=== PATIENT | female | born 1945 | race Caucasian/White ===

== ENCOUNTER → 2017-03-24 | Outpatient (CLI) | payer OTHER ==
[2016-09-29 12:01] VITALS: BP 149/65
[~2017-03-24] MED LIST: AMLO2.5T PO; CIPR500T94 PO; FLUC200T4 PO; FLUO10CA13 PO; HYDR-2666 PO; HYDR-971 PO; LISI40TA PO; PHEN-373 PO
--- NOTE | 2017-03-24 14:05 | KCIC ---
MR of the left knee HISTORY: Left knee pain. Pain for 3 months. Nogal pop. Swelling. TECHNIQUE: Routine multiplanar sequences. FINDINGS: Radial tear at the posterior root attachment of the medial meniscus. Extrusion of medial meniscus from the medial joint compartment. Diffuse intrameniscal signal through the entire medial meniscus. No evidence of lateral meniscal tear. Anterior and posterior cruciate ligaments are intact. Medial collateral ligament is intact. Iliotibial band unremarkable. Fibular collateral ligament, biceps femoris tendon and popliteus tendon are intact. Extensor mechanism is intact. Trace joint fluid. No evidence of osteochondral loose body. Severe chondromalacia at the medial joint compartment. Moderate to severe chondromalacia at the medial ridge of the patella. No bone lesion. No acute fracture. No acute soft tissue injury. Very small Dey's cyst. IMPRESSION: 1. Medial meniscal tear. 2. 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 Electronically signed by: Tj Vincent MD (03/24/2017 2:01 PM)
== END | disposition home or self-care (01) ==
LOC: KCIC MRI 11:44
PROVIDERS: ATTEND Orthopaedic Surgery
DX: M17.12 Unilateral primary osteoarthritis, left knee (principal); S83.242A Other tear of medial meniscus, current injury, left knee, initial encounter; X58.XXXA Exposure to other specified factors, initial encounter; Y93.89 Activity, other specified; Y92.89 Other specified places as the place of occurrence of the external cause; Y99.8 Other external cause status
CPT/HCPCS: 73721

== ENCOUNTER 2018-02-07 18:18 | Emergency (ER) | payer OTHER ==
[2018-02-07] MEDS: ACETAMINOPHEN 500 MG TABLET PO (19:22)
== END 2018-02-07 21:10 | disposition home or self-care (01) ==
LOC: ER 18:18
DX: S63.502A Unspecified sprain of left wrist, initial encounter (principal); S20.212A Contusion of left front wall of thorax, initial encounter; F41.9 Anxiety disorder, unspecified; F32.9 Major depressive disorder, single episode, unspecified; I10 Essential (primary) hypertension; Z87.440 Personal history of urinary (tract) infections; Z88.1 Allergy status to other antibiotic agents; Z88.8 Allergy status to other drugs, medicaments and biological substances; V89.2XXA Person injured in unspecified motor-vehicle accident, traffic, initial encounter; Y93.89 Activity, other specified; Y99.8 Other external cause status; Y92.488 Other paved roadways as the place of occurrence of the external cause
CPT/HCPCS: 71046; 73110; 93005; 99284-25

== ENCOUNTER → 2019-08-14 | Outpatient (CLI) | payer OTHER ==
[2018-02-07 21:10] VITALS: BP 163/83
[~2019-08-14] MED LIST changes: -AMLO2.5T PO; +AMLO2.5T5 PO; -HYDR-2666 PO; +HYDR-2761 PO; +HYDR-3164 PO; -HYDR-971 PO; +LISI-130 PO; -LISI40TA PO; -PHEN-373 PO; +PHEN-444 PO
--- NOTE | 2019-08-14 14:54 | KCIC ---
MRI Lumbar Spine without contrast History: Sciatica, recent onset of left posterior thigh pain, left knee pain, left lower extremity numbness Technique: Multiplanar, multi sequential noncontrast MR imaging was performed of the lumbar spine. Comparison: None Findings: Most inferior fully formed intervertebral disc space is considered L5-S1.. There is assumption of 5 lumbar type vertebral bodies. There is a rudimentary, incomplete intervertebral disc space at what is considered S1-S2. Other than small Schmorl's nodes, lumbar vertebral body stature is maintained. There is negligible anterior spondylolisthesis at L3-L4. There is mild L3-4 degenerative disc disease, mild disc desiccation L2-3 and L5-S1. Not fully evaluated, there is either a circumaortic or retroaortic left renal vein. There are either cysts of the left renal pelvis versus hydronephrosis. T12-L1: Neural foramina and spinal canal are adequate. L1-L2: Neural foramina and spinal canal are adequate. L2-L3: There is minimal buckling of the ligamentum flavum and facet degenerative change. There is very minimal disc osteophyte complex and bulge. There is hemangioma of the right superior L3 vertebral body. There is very mild inferior narrowing of the left neural foramen, right neural foramen adequate. Spinal canal is overall adequate. L3-L4: There is mild facet degenerative change and buckling of the ligamentum flavum. There is very mild narrowing of the left neural foramen, right neural foramen adequate. There is very mild narrowing of the far lateral recesses greater on the left. L4-L5: There is minimal facet degenerative change. Neural foramina and spinal canal are adequate. L5-S1: There is mild facet hypertrophic change and buckling of the ligamentum flavum. There is minimal fluid in the right facet articulation. There is very shallow posterior central protrusion about 2 mm AP without significant neural impingement. Spinal canal is adequate. Right neural foramen is adequate. There is mild to moderate narrowing of the left neural foramen primarily from posteriorly by facet. Impression: 1. There is possible transitional anatomy, most inferior fully formed intervertebral disc space considered L5-S1 for this report. There is no significant lumbar spinal stenosis, very mild narrowing of the far lateral recesses greater on the left at L3-4. 2. There is mild narrowing of the left L5-S1 neural foramen by facet, very mild narrowing of the left L2-3 and L3-4 neural foramina. Electronically signed by: Khoi De Leon MD (08/14/2019 2:51 PM) [facility]
== END | disposition home or self-care (01) ==
LOC: KCIC MRI 10:08
PROVIDERS: ATTEND Orthopaedic Surgery
DX: M48.07 Spinal stenosis, lumbosacral region (principal); M51.27 Other intervertebral disc displacement, lumbosacral region; M47.817 Spondylosis without myelopathy or radiculopathy, lumbosacral region; M43.16 Spondylolisthesis, lumbar region; M25.78 Osteophyte, vertebrae; D18.09 Hemangioma of other sites
CPT/HCPCS: 72148

== ENCOUNTER → 2019-09-18 | Outpatient (CLI) | payer OTHER ==
[2018-02-07 21:10] VITALS: BP 163/83
[~2019-09-18] MED LIST changes: +AMLO10TA8 PO; +CHOL200027 PO; +CRAN250C PO; +LACT1CAP6 PO; +MILK140C PO; +OMEG1CAP27 PO; +VITA1TAB19 PO
--- NOTE | 2019-09-18 12:26 | PAIN ---
DATE OF SERVICE: 09/18/2019 INITIAL CONSULTATION FOR PAIN CLINIC CHIEF COMPLAINT: Low back and left lower extremity pain. HISTORY OF PRESENT ILLNESS: This is a 73-year-old female who presents with history of approximately 3-month history of pain in the low back and left lower extremity, not a result of any specific injury or action that she is aware of. Said she fell on some ice about a year ago and had some pain in the left side, but has not had much. After that the pain began in 05/2019 in the low back and left leg radiating in the posterior gluteus, posterior thigh, posterolateral calf, lateral thigh, anterior thigh and into the foot involving all the toes, on the knee and outside of the leg and the foot is numb. The patient reports the pain is in the low back. She described it as stabbing and sharp, shooting, intermittent in intensity, but always present, tingling with numbness in the knee, radiating into the legs as well on the left side. No significant radiation of pain on the right side. Worse with walking, standing, changing positions, especially getting up from a seated position. Better with sitting or lying down, but does awaken her from sleep occasionally, not every night. The patient reports it does not affect her bowel or bladder control, does affect her ability to walk significantly. She continues to do yoga both an instructional class and on her own and is doing some stretching and strengthening exercises, which helped a little, but only temporarily. The patient reports there is some yoga poses that she is unable to do, walking is limited to short distances now because of the pain. She has tried Tylenol, ibuprofen, heat, ThermaCare HeatWraps, Aspercreme ointments; BenGay ointment doing this daily, which does help mildly, but only mildly. The patient did have an MRI scan of the lumbar spine showing mild buckling of ligamentum flavum at L2-L3 as well as L3-L4 with very mild narrowing of the left neural foramen at L3-L4, very mild narrowing at the far lateral recesses greater on the left. L4-L5 shows normal foramina. L5-S1 shows a very shallow posterior central protrusion about 2 mm AP diameter without significant neural impingement with [id number] narrowing of the left neural foramen. The patient rates her disability ranging from 0-10, 10 being the worst, as a 5-6 with family home responsibilities, social activity, occupation, 7-8 with recreation, 6-8 with self-care, and 0-2 with life support activities, mostly with trouble sitting from prolonged periods and doing her yoga exercises becoming more difficult as well. PAST MEDICAL HISTORY: Significant for hypertension. PREVIOUS SURGERY: Include carotid endarterectomy in 2018, hysterectomy, kidney stone extraction with stents placed and tubal ligation. CURRENT MEDICATIONS: Include vitamin D, vitamin B, milk thistle, fluconazole, probiotics, amlodipine, cranberry extract, and omega 3 fish oils. ALLERGIES: THE PATIENT HAS ALLERGIES TO TETRACYCLINE, STATINS AND CIPRO. FAMILY HISTORY: Significant for Alzheimer's disease, colon cancer, arthritis, COPD, emphysema. SOCIAL HISTORY: The patient does not drink alcohol, does not smoke, does not use any illegal, illicit or recreational drugs. She is retired, [place], [place]. REVIEW OF SYSTEMS: The patient's review of systems is positive for those items mentioned in history of present illness. All systems reviewed and otherwise negative. It is complete, full and well documented on the patient's chart. PHYSICAL EXAMINATION: VITAL SIGNS: The patient's blood pressure is 131/62, pulse 83, respirations 18, temperature is 98.1 degrees Fahrenheit, height is 5 feet, weight is 144 pounds. GENERAL: The patient is awake, alert, oriented, appropriate, very pleasant demeanor. HEENT: Head shows normocephalic, atraumatic. Extraocular movements are intact and symmetrical. Oral cavity; mucous membranes moist and pink. Dentition is intact. NECK: Shows anterior throat supple without palpable lymphadenopathy noted. Swallow reflex symmetrical. CHEST: Shows normal on inspection. Breath sounds clear to auscultation bilaterally. HEART: Shows S1, S2 clear. No murmurs auscultated. ABDOMEN: Soft, nontender, nondistended. No palpable organomegaly is noted. No rebound or guarding demonstrated. BACK: Shows spine grossly in the midline. Normal appearing thoracic kyphosis and lumbar lordotic curvature is slightly flattened. Lumbar paraspinous muscle shows symmetrical on inspection, on palpation shows some moderate tenderness diffusely throughout the upper, middle and lower distribution of the paraspinous muscles, more on the left in the low lumbar distribution, however, but symmetrical without evidence of atrophy, hypertrophy, no trigger points, no radiation of pain. The patient shows no tenderness over the spinous processes, sacrum or sacroiliac regions. The patient has good rotational motion of lumbar spine, both laterally as well as extension and flexion without increase in pain. No tenderness over the sacroiliac regions. EXTREMITIES: The patient's lower extremities show deep tendon reflexes at 2+ in the patellar, 1+ tendo-calcaneus tendons are equal. Motor exam is strong with 5/5 dorsiflexion, extension, quadriceps and hamstring flexion. The patient's lower extremities are warm and dry to touch, equal in color and appearance. Peripheral pulses are 1+ posterior tibia. No peripheral edema is noted bilaterally. Gaenslen's and Surinder's maneuvers are negative bilaterally. The patient's straight leg raise is mildly positive; however, on the left about 45 degrees, decreased with knee flexion with pain in the posterior gluteus, posterior thigh, decreased with knee flexion. Once again, right side is negative. The patient is able to stand, stand on her toes without significant difficulty or loss of balance, walks with normal appearing gait for short distance in the office today, not using any assistive devices such as canes or walkers to ambulate. SKIN: The patient's skin shows warm and dry, good turgor. No edema, sores, rashes or bruising throughout. IMPRESSION: 1. This is a 73-year-old female with approximately 3-month history of low back and left lower extremity pain in a radicular fashion following L5-S1 dermatomal distribution. 2. MRI scan of lumbar spine as noted. 3. Hypertension. PLAN: Options were discussed with the patient including conservative medical managements, physical therapies and interventional techniques. She is doing yoga and stretching and strength exercises significantly, walking as best she can. She would like to pursue interventional techniques. We discussed a lumbar epidural steroid injection using description as well as anatomical models to describe the procedure. The patient will wait for preauthorization with insurance provider. In the meantime, we will try Medrol Dosepak. The patient was given instruction as well as side effects to be aware of with the medication. The patient will return to clinic for translaminar L5-S1 level lumbar epidural steroid injection for her L5-S1 left sided lumbar radiculopathy and again try the Medrol Dosepak in the meantime. Follow up as scheduled. LEXIE HUSTON MD DR: CARTER/maxwell JOB#: [id number] / [id number] CARLEY Figueroa MD
== END | disposition home or self-care (01) ==
LOC: PNCL 09:28
PROVIDERS: ATTEND Anesthesiology
DX: M48.02 Spinal stenosis, cervical region (principal); M79.604 Pain in right leg; I10 Essential (primary) hypertension; Z90.710 Acquired absence of both cervix and uterus; Z87.442 Personal history of urinary calculi; Z98.51 Tubal ligation status; Z96.0 Presence of urogenital implants
CPT/HCPCS: G0463

== ENCOUNTER → 2019-10-06 | Outpatient (CLI) | payer OTHER ==
[2018-02-07 21:10] VITALS: BP 163/83
--- NOTE | 2019-10-06 11:18 | PAIN ---
DATE OF SERVICE: 10/06/2019 PROGRESS NOTE FOR PAIN CLINIC DIAGNOSES: Lumbar radiculopathy with lumbar degenerative disk disease. HISTORY OF PRESENT ILLNESS: The patient is a 73-year-old female who returns for followup status post initial evaluation and preauthorization for lumbar epidural steroid injection. The patient returns today reporting that she would like to wait on that. She is having some budgetary concerns with the cost of the injection and we will honor this, of course. The patient reports still significant pain in the low back, left lower extremity, posterior gluteus, posterior thigh, posterior calf, some in the lateral anterior calf as well on the left side. Rates at 8 on a scale of 10 at its worst, 8 on average, 4 at its least over the past week and is a 4 today. The patient reports that she has no new motor or sensory deficits. We did try Medrol Dosepak, but she was having some significant side effects and felt nauseous and ill taking it first day and discontinued after that. The patient reports no new motor or sensory deficits. Still some numbness and tingling in the leg, sharp and aching in the back with radiating, shooting pain in the left lower extremity. The patient reports no new motor or sensory deficits, no new bowel or bladder incontinence or other complaints. PHYSICAL EXAMINATION: VITAL SIGNS: The patient's blood pressure is 129/69, pulse 87, respirations are 16, temperature is 98.4 degrees Fahrenheit, height is 5 feet, weight is 147 pounds. GENERAL: The patient is awake, alert, oriented, appropriate, very pleasant in demeanor. HEENT: Head shows normocephalic, atraumatic. Patient is wearing eye glasses. Extraocular movements are intact and symmetrical. Oral cavity shows mucous membranes are moist and pink. Dentition is intact. NECK: Shows anterior throat supple. CHEST: Shows normal on inspection. Breath sounds are clear. HEART: Shows S1, S2 clear. ABDOMEN: Soft, nontender, nondistended. BACK: Shows spine grossly in the midline. Lumbar paraspinous muscle shows symmetrical on inspection, with palpation shows some mild tenderness in the middle and lower distribution of the paraspinous musculature only, but without asymmetry, without trigger points or radiation. The patient has good rotational motion of lumbar spine, both laterally as well as extension and flexion without difficulty. EXTREMITIES: Lower extremities show deep tendon reflexes at 2+ in the patellar, 1+ tendo-calcaneus tendons. Motor exam is strong with 5/5 dorsiflexion, extension, quadriceps and hamstring flexion and symmetrical. Peripheral pulses are 1+ posterior tibia. No peripheral edema is noted. Options were discussed with the patient. The patient's old chart was reviewed as her current medication regimen updated. Current review of systems updated today as well. We will wait until after 10/2019 and have the patient return for followup for lumbar epidural steroid injection at that time. In the meantime, the patient will continue with stretching and strengthening exercises, trying to walk and exercise daily as tolerated. LEXIE HUSTON MD DR: CARTER/maxwell JOB#: [id number] / [id number]
== END | disposition home or self-care (01) ==
LOC: PNCL 09:47
PROVIDERS: ATTEND Anesthesiology
DX: M51.16 Intervertebral disc disorders with radiculopathy, lumbar region (principal)
CPT/HCPCS: G0463

== ENCOUNTER → 2019-10-30 | Outpatient (CLI) | payer MEDICARE ==
[2018-02-07 21:10] VITALS: BP 163/83
[~2019-10-30] MED LIST changes: +IOHEXOL 180 MG/ML 10 ML VIAL. ONE; +methylPREDNISolone ACETATE 40 MG/ML VIAL. ONE; +methylPREDNISolone ACETATE 80 MG/ML VIAL. ONE
--- NOTE | 2019-10-31 01:16 | PAIN ---
DATE OF SERVICE: 10/30/2019 PROGRESS NOTE FOR PAIN CLINIC DIAGNOSIS: Lumbar radiculopathy with lumbar degenerative disk disease. HISTORY OF PRESENT ILLNESS: The patient is a 74-year-old female who returns for followup status post initial evaluation and preauthorization for lumbar epidural steroid injection. The patient has obtained that now and would like to proceed. The patient reports still pain in the low back and left lower extremity as it was previously in posterior gluteus, posterior thigh, and posterior calf. No new motor or sensory deficits. No new changes. The patient reports it is worse with walking, standing, changing positions, better with sitting or lying down, does not awaken her from sleep at night. The patient reports it is a 9 on a scale of 10 at its worst over the past week, 7 on average and a 5 at its least and is a 5 today. The patient reports it is radiating, tingling down the back, the butt and the left leg. No new motor or sensory deficits. No new bowel or bladder incontinence or other complaints. PHYSICAL EXAMINATION: VITAL SIGNS: The patient's blood pressure is 133/71, pulse 107, respirations 18, temperature 98.0 degrees Fahrenheit, height is 5 feet, weight is 147 pounds. GENERAL: The patient is awake, alert, oriented, appropriate, very pleasant demeanor. HEENT: Shows normocephalic, atraumatic. Extraocular movements are intact and symmetrical. Oral cavity: Mucous membranes moist and pink. Dentition is intact. NECK: Shows anterior throat supple without palpable lymphadenopathy noted. Swallow reflex symmetrical. CHEST: Shows normal on inspection. Breath sounds clear bilaterally. HEART: Shows S1, S2 clear. No murmurs auscultated. ABDOMEN: Soft, nontender, nondistended. BACK: Shows spine grossly in the midline. Slight exaggeration of thoracic kyphosis and minor flattening of lumbar lordotic curvature. Lumbar paraspinous muscle shows symmetrical on inspection, with palpation shows some moderate tenderness diffusely in the low lumbar distribution, left greater than right, but symmetrical without evidence of atrophy, hypertrophy, no trigger points or radiation of pain demonstrated. EXTREMITIES: Lower extremities showed deep tendon reflexes at 2+ in the patellar, 1+ tendo-calcaneus tendons. Motor exam is strong with 5/5 dorsiflexion, extension, quadriceps and hamstring flexion and symmetrical. Peripheral pulses are 1+ posterior tibial. No peripheral edema is noted. Options were discussed with the patient. The patient's old chart was reviewed as her current medication regimen updated. Current review of systems updated today as well and we will proceed with first in the series of lumbar epidural steroid injection today with fluoroscopic guidance. Risks were discussed including but not limited to bleeding, infection, possibility of epidural hematoma, subsequent neurological compromise, dural puncture, headaches, spinal cord and/or nerve damage, side effects of steroid medication and poor results regarding pain control. The patient understands and wished to proceed. The patient will return to clinic in approximately 2 weeks for followup, was counseled on return appointment, activity level and side effects to be aware of. DIAGNOSIS: Lumbar radiculopathy with lumbar degenerative disk disease. PROCEDURE: Lumbar epidural steroid injection, translaminar approach at L5-S1 level using C-arm fluoroscopic guidance under sterile prep and drape using local anesthetic. MEDICATION INJECTED: A total of 120 mg of Depo-Medrol plus 10 mL of preservative-free normal saline and 2 mL of contrast. CONDITION AT DISCHARGE: Stable. The patient tolerated the procedure well, had no complications. LEXIE HUSTON MD DR: CARTER/maxwell JOB#: [id number] / [id number]
== END ==
LOC: PNCL 10:01
PROVIDERS: ATTEND Anesthesiology
DX: M51.16 Intervertebral disc disorders with radiculopathy, lumbar region (principal)
CPT/HCPCS: 62323; J1030; J1040; Q9965

== ENCOUNTER → 2019-11-21 | Outpatient (CLI) | payer MEDICARE ==
[2018-02-07 21:10] VITALS: BP 163/83
[~2019-11-21] MED LIST changes: -IOHEXOL 180 MG/ML 10 ML VIAL. ONE; -methylPREDNISolone ACETATE 40 MG/ML VIAL. ONE; -methylPREDNISolone ACETATE 80 MG/ML VIAL. ONE
--- NOTE | 2019-11-21 11:50 | PAIN ---
DATE OF SERVICE: 11/21/2019 PROGRESS NOTE FOR PAIN CLINIC DIAGNOSIS: Lumbar radiculopathy with lumbar degenerative disk disease. HISTORY OF PRESENT ILLNESS: The patient is a 74-year-old female who returns for followup status post lumbar epidural steroid injection x 1 on 10/30/2019. The patient reports she did very well with about a 90% improvement, still currently improved. The patient reports she has been increasing activity. She has been going to the gym now, working out again, being very active, increased her activity, walking, doing household activities, traveling with greater ease and comfort, does not awaken her from sleep, much better with sitting, lying down, but even with her activities. She is rating her pain as 0 on a scale of 10 at its worst, average and least and is a 0 today. The patient reports no further pain. She is very pleased. Again, working out consistently now for the past few weeks at the gym and is very pleased with her progress thus far. The patient reports no new changes, no new motor or sensory deficits, no new bowel or bladder incontinence. PHYSICAL EXAMINATION: VITAL SIGNS: The patient's blood pressure 129/69, pulse 85, respirations 16, temperature 97.3 degrees Fahrenheit, weight is 143 pounds. GENERAL: The patient is awake, alert, oriented, appropriate, very pleasant demeanor. HEENT: Head shows normocephalic, atraumatic. Extraocular movements are intact and symmetrical. Oral cavity: Mucous membranes moist and pink. Dentition is intact. NECK: Shows anterior throat supple. CHEST: Shows normal on inspection. Breath sounds clear bilaterally. HEART: Shows S1, S2 clear. ABDOMEN: Soft, nontender. BACK: Shows spine grossly in the midline. Slight flattening of lumbar lordotic curvature, minor increase in thoracic kyphosis. Lumbar paraspinous muscle shows symmetrical on inspection, with palpation shows some moderate tenderness but only very mildly in the low lumbar distribution bilaterally. The patient has full rotational motion of lumbar spine, both laterally as well as extension and flexion without pain or difficulty. EXTREMITIES: Lower extremities show deep tendon reflexes 2+ in the patellar, 1+ tendo-calcaneus tendons are equal. Motor exam is strong with 5/5 dorsiflexion, extension and equal bilaterally. Peripheral pulses are 1+. No peripheral edema is noted. ASSESSMENT AND PLAN: Options were discussed with the patient. The patient's old chart was reviewed as her current medication regimen updated. Current review of systems updated today as well. We will hold on any further injections at this time as the patient is doing quite a bit better. We would like to wait as she is going to maintain her activity level, increase as tolerated, maintain her workout schedule at the gym as well as daily walking and stretching. The patient will follow up at this time on as needed basis. LEXIE HUSTON MD DR: CARTER/maxwell JOB#: [id number] / [id number]
== END | disposition home or self-care (01) ==
LOC: PNCL 10:15
PROVIDERS: ATTEND Anesthesiology
DX: M51.16 Intervertebral disc disorders with radiculopathy, lumbar region (principal)
CPT/HCPCS: G0463